=== PATIENT | male | born 1975 | race African-American/Black ===

== ENCOUNTER 2019-06-24 19:27 | Emergency (ER) | payer SELFPAY | END 2019-06-24 19:55 | disposition home or self-care (01) | LOC: ERS 19:27 | DX: R05 Cough (principal); R06.2 Wheezing | CPT/HCPCS: 99283 ==

== ENCOUNTER 2019-09-03 05:15 | Emergency (ER) | payer SELFPAY ==
[2019-09-03 06:25] LABS: #Eosinphils 0.4 thou/uL (0.0-0.7); #Lymphocytes 2.2 thou/uL (1.20-3.40); #Monocytes 0.3 thou/uL (0.11-0.59); #Neutrophils 1.7 thou/uL (1.40-6.50); %Basophils 0.8 % (0.0-1.0); %Eosinophils 7.8 % (0.0-10.0); %Lymphocytes 47.8 % (21.0-51.0); %Monocytes 7.3 % (0.0-10.0); %Neutrophils 36.3 % (42.0-75.0); Hemoglobin 15.5 g/dL (14.0-18.0); Mean Corpuscular Volume 84.8 fL (78.0-98.0); Mean Platelet Volume 7.1 fL (7.4-10.4); Platelet Count 183 thou/uL (130-400); RBC Distribution Width 12.6 % (11.5-14.5); Red Blood Cell (RBC) Count 5.53 mill/uL (4.70-6.10); White Blood Cell (WBC) Count 4.6 thou/uL (4.8-10.8)
[2019-09-03 06:33] LABS: Bacteria/HPF None Seen HPF (None Seen); Bilirubin Negative (Negative); Blood, Urine 2+ (Negative); Clarity Clear (Clear); Glucose, Urine (Dipstick) Normal (Negative); Leukocyte Negative Leu/uL (Negative); Nitrite Negative (Negative); Protein, Urine (Dipstick) 10 mg/dL (Neg-Trace); RBC/HPF Greater than 50 HPF (0-3); Squamous Epithelial 0-3 HPF (0-3); Urobilinogen Normal mg/dL (Less than 2); WBC/HPF 0-3 HPF (0-3)
[2019-09-03 07:03] LABS: ALT (SGPT) 17 U/L (8-55); AST (SGOT) 17 U/L (5-34); Albumin 4.1 g/dL (3.5-5.0); Alkaline Phosphatase 104 U/L (40-110); Anion Gap 10 mmol/L (10-20); BUN (Urea Nitrogen) 9 mg/dL (8.9-20.6); Bilirubin, Total 1.1 mg/dL (0.2-1.2); Calc. Creatinine Clearance 0 mL/min (70-130); Calcium 9.1 mg/dL (7.8-10.44); Carbon Dioxide 28 mmol/L (22-29); Chloride 107 mmol/L (98-107); Estimated GFR-MDRD 83; Glucose 96 mg/dL (70-105); Potassium 4.2 mmol/L (3.5-5.1); Protein, Total 7.1 g/dL (6.0-8.3); Sodium 141 mmol/L (136-145)
[2019-09-03] MEDS ORDERED: Ondansetron PF 4 MG/2 ML Vial ONE (08:19)
[2019-09-03] MEDS ORDERED: Ketorolac Tromethamine 30 MG/ML VIAL ONE (08:19)
--- NOTE | 2019-09-03 08:48 | CT ---
CT OF ABDOMEN AND PELVIS PERFORMED WITHOUT CONTRAST ENHANCEMENT: HISTORY: Left-sided abdomen pain. FINDINGS: The lung bases are clear of infiltrates. The liver, spleen, pancreas, and gallbladder regions appear unremarkable. Right and left adrenal glands are normal in appearance. Punctate bilateral nonobstructing renal calc [place] are seen. In addition, there is a 3-4 mm proximal left ureteral calculus located at L3 associate d with some fairly minimal dilatation of the left collecting system and ureter to this level. The ur eter below this level is nondilated. There is no significant periaortic or mesenteric adenopathy. CT OF PELVIS PERFORMED WITHOUT CONTRAST ENHANCEMENT: There is no evidence of significant adenopathy or mass. No free fluid. IMPRESSION: 1. Approximately 3-4 mm proximal left ureteral calculus located at the L3 level. 2. Small punctate bilateral renal calculi. 3. There is a small calcification adjacent to the right ureter, but this is felt to represent a phle bolith. This is located near the proximal right ureter. POS: FRANDY
[2019-09-03] MEDS ORDERED: Morphine 4 MG/ML VIAL ONE (09:32)
[2019-09-03] MEDS ORDERED: Acetaminophen 500 MG TAB ONE (09:33)
[2019-09-03] MEDS ORDERED: Morphine 2 MG/ML SYRINGE ONE (09:33)
== END 2019-09-03 11:20 | disposition home or self-care (01) ==
LOC: ERS 05:15
DX: N20.1 Calculus of ureter (principal)
CPT/HCPCS: 36415; 74176; 80053; 81003; 81015; 85025; 96361; 96374; 96375; J1885; J2270; J2405